=== PATIENT | female | born 1975 | race Caucasian/White ===

== ENCOUNTER → 2017-01-31 | Outpatient (REF) | payer OTHER | LOC: M LAB REF 10:41 | PROVIDERS: ATTEND Physician Assistant | DX: R30.0 Dysuria (principal) ==

== ENCOUNTER → 2018-05-24 | Outpatient (REF) | payer OTHER ==
[2018-05-25 13:07] LABS: CHLAMYDIA DNA AMPLIFICATION NEGATIVE (NEGATIVE); GC DNA AMPLIFICATION NEGATIVE (NEGATIVE)
== END ==
LOC: M SFHCLERA 18:00
DX: R30.0 Dysuria (principal)
CPT/HCPCS: 87086

== ENCOUNTER → 2018-07-07 | Outpatient (REF) | payer OTHER ==
[2018-07-07 11:54] LABS: BASO # 0.1 10^3/uL (0.0-0.2); BASO % 0.7 % (0.0-1.0); EOS # 0.1 10^3/uL (0.0-0.50); EOS % 0.7 % (0.0-3.0); HEMATOCRIT 42.7 % (36.0-47.0); HEMOGLOBIN 13.5 g/dl (12.0-15.5); IMMATURE GRANULOCYTE % 0.4 % (0-3.0); LYMPH # 2.1 10^3/uL (1.5-4.5); LYMPH % 25.5 % (24.0-44.0); MEAN CORPUSCULAR HEMOGLOBIN 25.9 pg (27.0-33.0); MEAN CORPUSCULAR HGB CONC 31.6 g/dl (32.0-36.5); MONO # 0.4 10^3/uL (0.0-0.8); MONO % 5.3 % (0.0-5.0); NEUTROPHILS # 5.6 10^3/uL (1.8-7.7); NEUTROPHILS % 67.4 % (36.0-66.0); PLATELET COUNT, AUTOMATED 304 10^3/uL (150-450); RED BLOOD COUNT 5.21 10^6/uL (4.00-5.40); WHITE BLOOD COUNT 8.4 10^3/uL (4.0-10.0)
[2018-07-07 12:13] LABS: ALBUMIN 3.7 GM/DL (3.2-5.2); ALKALINE PHOSPHATASE 79 U/L (45-117); ALT/SGPT 40 U/L (12-78); ANION GAP 8 MEQ/L (8-16); AST/SGOT 16 U/L (7-37); BILIRUBIN,TOTAL 0.4 MG/DL (0.2-1.0); BLOOD UREA NITROGEN 15 MG/DL (7-18); CALCIUM LEVEL 8.9 MG/DL (8.5-10.1); CARBON DIOXIDE LEVEL 27 MEQ/L (21-32); CHLORIDE LEVEL 104 MEQ/L (98-107); CHOLESTEROL LEVEL 220 MG/DL (<200); CHOLESTEROL RISK RATIO 8.148 (<5); CREATININE FOR GFR 0.82 MG/DL (0.55-1.30); GLOMERULAR FILTRATION RATE > 60.0 (>58); GLUCOSE, FASTING 103 MG/DL (70-100); HDL CHOLESTEROL 27 MG/DL (>40); NON-HDL-C 193 MG/DL; POTASSIUM SERUM 4.6 MEQ/L (3.5-5.1); SODIUM LEVEL 139 MEQ/L (136-145); TOTAL PROTEIN 7.4 GM/DL (6.4-8.2); TRIGLYCERIDES LEVEL 465 MG/DL (<150)
[2018-07-07 12:26] LABS: ESTIMATED AVERAGE GLUCOSE 131 MG/DL (60-110); HEMOGLOBIN A1c 6.2 %
[2018-07-07 12:44] LABS: CREATININE, URINE 78.1 MG/DL; MALB URINE SIEMENS 20.5 MG/L; MAU/CREAT RATIO 26.2 MCG/MG (0.0-30.0)
== END ==
LOC: M SFHCLERA 08:55
DX: E66.9 Obesity, unspecified (principal)

== ENCOUNTER → 2018-08-06 | Outpatient (CLI) | payer BC, OTHER ==
--- NOTE | 2018-08-06 17:21 | REP ---
Digital diagnostic bilateral mammography with CAD, 3-D mammography, and focused left axillary ultrasound: History: Intermittent fullness of the left axilla and burning. The patient does not feel a lump at this juncture. Comparison mammography February 13, 2017. Comparison sonography is from February 13, 2017. Mammographic findings: There are normal appearing lymph nodes in each axilla. Scattered fibroglandular elements are seen bilaterally. No dominant density, architectural distortion, mass, or spiculation is seen. No microcalcification is observed. No worrisome skin change is seen. Sonographic findings: The left axilla is scanned. There is a 1.5 x 0.6 x 0.7 cm normal benign lymph node with a thin cortical margin and a fatty hilus in the left axilla. No cyst, acoustic shadowing or suspicious finding. Impression: BIRADS category 2 benign findings. This negative report should not dissuade one from biopsy of a palpable lump depending on its clinical characteristics. Clinical follow-up is advised. BI-RADS/ACR category 2 mammogram. Benign finding(s). Routine annual screening mammography (for women over age 40). This mammogram was interpreted with the aid of an FDA-approved computer-aided detection system. The patient states she had a clinical breast exam in June 2018. The patient letter being requested is m#[email or web address]. This patient's estimated Tyrer-Cuzick lifetime risk assessment for the breast cancer is 25.2 %. Enhanced screening in the form of annual bilateral breast MRI scanning is warranted. Bilateral breast MRI scanning is recommended annually, beginning 6 months from now. Electronically Signed by Vernon Lawrence MD 08/07/2018 07:53 A
== END ==
LOC: M RAD 15:01
PROVIDERS: ATTEND Family Medicine
DX: R92.8 Other abnormal and inconclusive findings on diagnostic imaging of breast (principal)
CPT/HCPCS: 76642; 77066; G0279

== ENCOUNTER → 2018-10-13 | Outpatient (REF) | payer OTHER | LOC: M SFHCLERA 21:09 | PROVIDERS: ATTEND Nurse Practitioner Family | DX: R31.9 Hematuria, unspecified (principal) ==

== ENCOUNTER → 2020-12-07 | Outpatient (REF) | payer OTHER | LOC: M SFHCWAGY 10:07 | PROVIDERS: ATTEND Nurse Practitioner Women's Health | DX: Z12.4 Encounter for screening for malignant neoplasm of cervix (principal); Z01.419 Encounter for gynecological examination (general) (routine) without abnormal findings ==

== ENCOUNTER → 2021-01-18 | Outpatient (CLI) | payer BC ==
--- NOTE | 2021-01-18 11:37 | REPMRS ---
Patient History The patient states she had a clinical breast exam in November 2020. Family history of breast cancer at age 60 in maternal aunt, breast cancer at age 40 in paternal grandmother. Moderna vaccine 08/17/20 left arm. 09/14/20 right arm. Pt denied . Patient states no breast complaints today. Patient has signed MRS History Sheet. Digital Woman Screen Mammo: January 18, 2021 - Exam #: [id number] Bilateral CC and MLO view(s) were taken. Technologist: RT Monroe Prior study comparison: August 06, 2018, digital mammo diagnostic bilateral, performed at [facility]. February 13, 2017, bilateral digital mammo screening bilat, performed at [facility]. FINDINGS: There are scattered fibroglandular densities. The Volpara volumetric breast density category is: B. There is a moderate amount of residual fibroglandular tissue which is fairly symmetric. There is no interval development of dominant mass, architectural distortion, or grouped microcalcification typical of malignancy. There has been no change in the appearance of the mammogram from the prior studies. 3-D tomosynthesis shows no additional findings. Assessment: BI-RADS/ACR category 1 mammogram. Negative Mammogram. Recommendation Breast MRI of both breasts in 6 months. Routine screening mammogram of both breasts in 1 year (for women over age 40). This patient's [facility] Lifetime Breast Cancer RIsk is estimated at 24.6 %. Patients whose estimated lifetime breast cancer risk assessment is greater than 20% merit annual screening breast MRI scanning in addition to annual mammography. This mammogram was interpreted with the aid of an FDA-approved computer-aided dectection system. Electronically Signed By: Aniket Lawrence MD 01/18/21 [id number]
== END ==
LOC: M WHC 10:17
PROVIDERS: ATTEND Family Medicine
DX: Z12.31 Encounter for screening mammogram for malignant neoplasm of breast (principal)

== ENCOUNTER → 2021-02-01 | Outpatient (REF) | payer OTHER | LOC: M LAB REF 17:59 | PROVIDERS: ATTEND Physician Assistant | DX: Z12.4 Encounter for screening for malignant neoplasm of cervix (principal) ==

== ENCOUNTER → 2021-06-20 | Outpatient (CLI) | payer BC, OTHER ==
[2021-06-20 11:41] LABS: BLOOD UREA NITROGEN 12 MG/DL (7-18); CREATININE FOR GFR 0.63 MG/DL (0.55-1.30); GLOMERULAR FILTRATION RATE > 60.0 (>58)
== END ==
LOC: M LAB 09:03
PROVIDERS: ATTEND Nurse Practitioner Women's Health
DX: Z01.812 Encounter for preprocedural laboratory examination (principal)

== ENCOUNTER → 2021-06-20 | Outpatient (CLI) | payer BC, OTHER ==
[2021-06-20 11:54] LABS: ALBUMIN 3.7 GM/DL (3.2-5.2); ALT/SGPT 34 U/L (12-78); BILIRUBIN,TOTAL 0.4 MG/DL (0.2-1.0); BLOOD UREA NITROGEN 12 MG/DL (7-18); CALCIUM LEVEL 9.1 MG/DL (8.5-10.1); CARBON DIOXIDE LEVEL 28 MEQ/L (21-32); CHLORIDE LEVEL 105 MEQ/L (98-107); CHOLESTEROL LEVEL 217 MG/DL (<200); CREATININE FOR GFR 0.64 MG/DL (0.55-1.30); GLOMERULAR FILTRATION RATE > 60.0 (>58); GLUCOSE, FASTING 83 MG/DL (70-100); HDL CHOLESTEROL 31 MG/DL (>40); LDL CHOLESTEROL 117 MG/DL (<100); NON-HDL-C 186 MG/DL; POTASSIUM SERUM 4.5 MEQ/L (3.5-5.1); SODIUM LEVEL 139 MEQ/L (136-145); TOTAL PROTEIN 7.4 GM/DL (6.4-8.2); TRIGLYCERIDES LEVEL 343 MG/DL (<150)
[2021-06-20 12:38] LABS: HEMOGLOBIN A1c 5.6 %
== END ==
LOC: M LAB 08:53
PROVIDERS: ATTEND Family Medicine
DX: R73.01 Impaired fasting glucose (principal); Z13.220 Encounter for screening for lipoid disorders

== ENCOUNTER → 2021-06-27 | Outpatient (CLI) | payer BC, OTHER ==
[~2021-06-27] MED LIST: PROHANCE 279.3MG/ML 15ML VIAL As Ordered ONE; PROHANCE 279.3MG/ML 5ML VIAL As Ordered ONE
== END ==
LOC: M RAD 12:28
PROVIDERS: ATTEND Nurse Practitioner Women's Health
DX: Z80.3 Family history of malignant neoplasm of breast (principal); Z91.89 Other specified personal risk factors, not elsewhere classified

== ENCOUNTER 2024-01-28 20:03 | Emergency (ER) | payer BC, OTHER ==
[~2024-01-28] VITALS: Ht 172.7 cm; Wt 88.1 kg
[2024-01-28] MEDS: ACETAMINOPHEN TAB 650MG DOSE (2X325MG) PO ONE (22:05)
[2024-01-28] MEDS: METOCLOPRAMIDE INJ 10MG/2ML VIAL IV ONE (23:48)
[2024-01-28] MEDS: diphenhydrAMINE 50MG/ML VIAL IV ONE (23:48)
[2024-01-28] MEDS: dexAMETHasone 20MG/5ML VIAL IV ONE (23:49)
[2024-01-28] MEDS: NS 1,000 ML IV ONE (23:49)
[2024-01-29 00:06] VITALS: BP 188/91; TEMP 97.5; O2SAT 98
[2024-01-29] MEDS: KETOROLAC 30 MG/ML 1ML VIAL IV ONE (01:01)
== END 2024-01-29 01:10 | disposition home or self-care (01) ==
LOC: M ED 20:03
DX: R51.9 Headache, unspecified (principal)
CPT/HCPCS: 70450; 96361; 96374; 96375; 99284; J1100; J1200; J1885; J2765

== ENCOUNTER → 2024-06-16 | Outpatient (CLI) | payer BC ==
[2024-06-16 18:24] LABS: BASO # 0.1 10^3/uL (0.0-0.2); BASO % 1.1 % (0.0-1.0); EOS # 0.2 10^3/uL (0.0-0.5); EOS % 1.8 % (0.0-3.0); HEMOGLOBIN 13.1 g/dl (12.0-15.5); LYMPH # 2.7 10^3/uL (1.5-5.0); LYMPH % 31.5 % (24.0-44.0); MEAN CORPUSCULAR VOLUME 84.4 fl (80.0-96.0); MONO # 0.5 10^3/uL (0.0-0.8); MONO % 6.4 % (2.0-8.0); NEUTROPHILS % 58.8 % (36.0-66.0); PLATELET COUNT, AUTOMATED 299 10^3/uL (150-450); RED BLOOD COUNT 4.86 10^6/uL (4.00-5.40); WHITE BLOOD COUNT 8.5 10^3/uL (4.0-10.0)
[2024-06-16 18:35] LABS: HEMOGLOBIN A1c 5.4 % (4.0-6.0)
[2024-06-16 18:50] LABS: ALBUMIN 3.8 G/DL (3.2-5.2); ALKALINE PHOSPHATASE 69 U/L (35-104); ALT/SGPT 22 U/L (7.0-40); AST/SGOT < 8 U/L (<34); BILIRUBIN,TOTAL 0.3 MG/DL (0.3-1.2); BLOOD UREA NITROGEN 18 MG/DL (9-23); CARBON DIOXIDE LEVEL 29 MMOL/L (20-31); CHLORIDE LEVEL 101 MMOL/L (98-107); CHOLESTEROL LEVEL 244 MG/DL (<200); CHOLESTEROL RISK RATIO 6.45 (<5); GLOMERULAR FILTRATION RATE > 60.0 (>58); GLUCOSE, FASTING 73 MG/DL (60-100); HDL CHOLESTEROL 37.8 MG/DL (>40); LDL CHOLESTEROL 135.4 MG/DL (<100); NON-HDL-C 206.2 MG/DL; POTASSIUM SERUM 4.7 MMOL/L (3.5-5.1); SODIUM LEVEL 138 MMOL/L (136-145); TOTAL PROTEIN 7.4 G/DL (5.7-8.2); TRIGLYCERIDES LEVEL 354 MG/DL (<150)
[2024-06-16 18:51] LABS: FREE T4 1.13 NG/DL (0.89-1.76); THYROID STIMULATING HORMONE 2.227 uIU/ML (0.55-4.78)
== END ==
LOC: M PLALAB 15:19
PROVIDERS: ATTEND Student in an Organized Health Care Education/Training Program
DX: Z13.1 Encounter for screening for diabetes mellitus (principal)

== ENCOUNTER → 2024-06-29 | Outpatient (REF) | payer OTHER, BC | LOC: M SFHCPLAZ 09:47 | PROVIDERS: ATTEND Student in an Organized Health Care Education/Training Program | DX: Z12.4 Encounter for screening for malignant neoplasm of cervix (principal) ==

== ENCOUNTER → 2025-07-05 | Outpatient (REF) | payer BC | LOC: M SFHCPLAZ 11:41 | PROVIDERS: ATTEND Family Medicine | DX: I10 Essential (primary) hypertension (principal); Z13.29 Encounter for screening for other suspected endocrine disorder; E78.00 Pure hypercholesterolemia, unspecified ==

== ENCOUNTER → 2025-07-06 | Outpatient (CLI) | payer BC | LOC: M WHC 00:12 | PROVIDERS: ATTEND Family Medicine | DX: Z12.31 Encounter for screening mammogram for malignant neoplasm of breast (principal); Z53.9 Procedure and treatment not carried out, unspecified reason ==

== ENCOUNTER → 2025-07-12 | Outpatient (CLI) | payer BC ==
[2025-07-12 11:44] LABS: PLATELET COUNT, AUTOMATED 325 10^3/uL (150-450)
[2025-07-12 12:11] LABS: ALT/SGPT 63 U/L (7.0-40); AST/SGOT 34 U/L (<34); CALCIUM LEVEL 8.7 MG/DL (8.5-10.1); CARBON DIOXIDE LEVEL 28 MMOL/L (20-31); CHLORIDE LEVEL 105 MMOL/L (98-107); CHOLESTEROL LEVEL 217 MG/DL (<200); CHOLESTEROL RISK RATIO 6.59 (<5); CREATININE FOR GFR 0.71 MG/DL (0.55-1.30); FREE T4 1.41 NG/DL (0.89-1.76); GLOMERULAR FILTRATION RATE > 90.0 (>58); LDL CHOLESTEROL 124.9 MG/DL (<100); NON-HDL-C 184.1 MG/DL; POTASSIUM SERUM 4.4 MMOL/L (3.5-5.1); SODIUM LEVEL 140 MMOL/L (136-145); TRIGLYCERIDES LEVEL 296 MG/DL (<150)
== END ==
LOC: M PLALAB 08:18
PROVIDERS: ATTEND Family Medicine
DX: I10 Essential (primary) hypertension (principal); Z13.29 Encounter for screening for other suspected endocrine disorder; E78.00 Pure hypercholesterolemia, unspecified